=== PATIENT | female | born 1990 | race Caucasian/White ===

== ENCOUNTER 2019-02-08 14:58 | Emergency (ER) | payer MEDICAID, OTHER ==
[~2019-02-08] VITALS: Ht 167.6 cm; Wt 107.0 kg
[2019-02-08 15:03] VITALS: BP 144/89; Ht 167.6 cm; Wt 107.0 kg
== END 2019-02-08 17:50 | disposition home or self-care (01) ==
LOC: ED 14:58 → EDBD 14:58 → ED 17:50
DX: N94.89 Other specified conditions associated with female genital organs and menstrual cycle (principal); I10 Essential (primary) hypertension; Z88.1 Allergy status to other antibiotic agents

== ENCOUNTER 2020-04-21 11:15 | Emergency (ER) | payer MEDICAID ==
[~2020-04-21] VITALS: Ht 167.6 cm; Wt 111.1 kg
[2020-04-21 11:26] VITALS: Ht 167.6 cm; Wt 111.1 kg
[2020-04-21 13:11] VITALS: BP 128/72
== END 2020-04-21 13:11 | disposition home or self-care (01) ==
LOC: ED 11:15
DX: S61.411D Laceration without foreign body of right hand, subsequent encounter (principal); I10 Essential (primary) hypertension; Z88.0 Allergy status to penicillin; W26.0XXD Contact with knife, subsequent encounter

== ENCOUNTER 2020-04-28 19:46 | Emergency (ER) | payer MEDICAID ==
[~2020-04-28] VITALS: Ht 167.6 cm; Wt 109.8 kg
[2020-04-28 19:51] VITALS: BP 158/88; Ht 167.6 cm; Wt 109.8 kg
== END 2020-04-28 20:03 | disposition home or self-care (01) ==
LOC: ED 19:46
DX: S61.411D Laceration without foreign body of right hand, subsequent encounter (principal); I10 Essential (primary) hypertension; Z88.0 Allergy status to penicillin; X58.XXXD Exposure to other specified factors, subsequent encounter